=== PATIENT | male | born 1940 | race Caucasian/White ===

== ENCOUNTER 2016-06-30 08:06 | Day surgery (SDC) | payer OTHER ==
[2016-06-30] MEDS ORDERED: ASPIRIN EC 325 MG TAB PO ONE ×2 (08:11→08:40)
[2016-06-30] MEDS ORDERED: NS 1,000 ML IV ONE (08:11)
[2016-06-30] MEDS ORDERED: DIAZEPAM 5 MG TAB PO ONE (08:11)
[2016-06-30] MEDS ORDERED: diphenhydrAMINE 25 MG CAP PO ONE ×2 (08:11→08:40)
[2016-06-30] MEDS ORDERED: FAMOTIDINE 20 MG TAB PO ONE (08:11)
[2016-06-30] MEDS ORDERED: DIAZEPAM 5 MG TAB ONE (08:40)
[2016-06-30] MEDS ORDERED: FAMOTIDINE 20 MG TAB ONE (08:40)
[2016-06-30 08:41] LABS: % IMMATURE GRANULYOCYTES 0.2 % (0.0-1.1); ABSOLUTE IMMATURE GRANULOCYTES 0.02 10^3/uL (0.00-0.10); ADD DIFF? NO; ADD MORPH? NO; ADD SCAN? NO; ATYPICAL LYMPHOCYTE FLAG 10 (0-99); FRAGMENT RBC FLAG 30 (0-99); HEMATOCRIT 56.3 % (40.0-51.0); HEMOGLOBIN 19.6 g/dL (13.7-17.5); LEFT SHIFT FLG 0 (0-99); LIPEMIA HEMOLYSIS FLAG 90 (0-99); MEAN CELL HEMOGLOBIN 33.2 pg (27.9-34.1); MEAN CELL HEMOGLOBIN CONCENTR. 34.8 g/dL (32.4-36.7); MEAN CELL VOLUME 95.4 fL (81.5-99.8); MEAN PLATELET VOLUME 8.8 fL (8.7-11.7); PLATELET CLUMPS FLAG 0 (0-99); PLATELET COUNT 170 10^3/uL (150-400); RED CELL DISTRIBUTION WIDTH 13.3 % (11.5-15.2)
--- NOTE | 2016-06-30 08:42 | CPEKG ---
Heart Rate: 79 RR Interval: 759 P-R Interval: 196 QRSD Interval: 86 QT Interval: 408 QTC Interval: 468 P Cavalier: 46 QRS Cavalier: 28 T Wave Cavalier: -12 EKG Severity - ABNORMAL ECG - EKG Impression: SINUS RHYTHM EKG Impression: PROBABLE LEFT ATRIAL ABNORMALITY EKG Impression: PROBABLE LEFT VENTRICULAR HYPERTROPHY EKG Impression: PROBABLE INFERIOR INFARCT, AGE INDETERMINATE Electronically Signed By: Miguel Hogan 30-Jun-2016 17:24:32
[2016-06-30 09:02] LABS: ANION GAP 10 mEq/L (8-16); CALCIUM 8.9 mg/dL (8.5-10.4); CARBON DIOXIDE 27 mEq/l (22-31); CHLORIDE 106 mEq/L (97-110); CHOLESTEROL 142 mg/dL (140-220); CREATININE 0.8 mg/dL (0.7-1.3); GLOMERULAR FILTRATION RATE > 60; GLUCOSE 101 mg/dL (70-100); HIGH DENSITY LIPOPROTEIN 43 mg/dL (40-65); LDL/HDL RATIO 1.98 RATIO (1.00-3.64); LOW DENSITY LIPOPROTEIN 85 mg/dL (80-100); MAGNESIUM 1.9 mg/dL (1.6-2.3); NON-HIGH DENSITY LIPOPROTEIN 99 mg/dL (90-129); POTASSIUM 4.1 mEq/L (3.5-5.2); SODIUM 143 mEq/L (134-144); TRIGLYCERIDE 71 mg/dL (40-150); VERY LOW DENSITY LIPOPROTEINS 14 mg/dL (8-25)
[2016-06-30 09:40] LABS: INR 1.37 (0.83-1.16); PROTIME(PATIENT) 16.9 SEC (12.0-15.0)
[2016-06-30] MEDS ORDERED: fentaNYL 100 MCG/2 ML INJ ONE (10:25)
[2016-06-30] MEDS ORDERED: LIDOCAINE 1% 30 ML SDV ONE (10:25)
[2016-06-30] MEDS ORDERED: MIDAZOLAM 2 MG/2 ML VIAL ONE (10:25)
[2016-06-30] MEDS ORDERED: VERAPAMIL 5 MG/2 ML VIAL ONE (10:26)
[2016-06-30] MEDS ORDERED: HEPARIN 10,000 UNIT/10 ML MDV ONE (10:26)
[2016-06-30] MEDS ORDERED: IOPAMIDOL (ISOVUE-370) 150 ML BTL IV ONE ×2 (10:26→11:36)
--- NOTE | 2016-06-30 10:50 | PDDXCAT ---
Diagnostic Cath Note - . Date: 06/30/16 [employer] Supervisor: Tamela Indication: other (Shortness of breath, pulmonary hypertension, NYHA class III ) - Procedure Access: right wrist (A plethysmography trace assisted Nando's Test was used to document dual artery supply to the hand and index finger prior to access.) Procedure: left heart catheterization, coronary angiography, left ventriculogram - Materials Left Heart Cath size: 5F Left Heart Cath materials: JL3.5, JR4.0, pigtail Right Heart Cath size: 5F Right Heart Cath materials: PWP catheter - Findings-Left Heart Catheterization LM: 7 mm in size. Bifurcates into an LAD and circumflex system. 30% proximal stenosis of the left main with BERONICA III flow. LAD: ~4 mm in size. 30% proximal stenosis of the LAD with BERONICA III flow. There is a septal occlusion (95%) of a 1.5 mm diagonal branch off the proximal LAD with BERONICA II flow. LCX: The circumflex is 4.5 mm in size. There are diffuse luminal irregularities consistent with atherosclerosis. BERONICA III flow throughout. RCA: Dominant vessel (gives rise to PDA and PLV branches), ~6 mm in size. No evidence of flow-limiting disease with BERONICA III flow. EDP: 11 mmHg LVEF: 65% Wall motion: No wall motion abnormalities identified on LVG. There is no significant MR. The visualized protion of the thoracic aorta revealed three sinuses of Valsalva. There was no evidence of aneurysm or dissection. 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 There were luminal irregulrities throughout the coronary circulation consistent with atherosclerosis, including a 30% proximal LAD lesion and 30% proximal left main lesion that did not limit flow (BERONICA III flow). Intervention was not needed/ warranted at the present time. The patient's coronary disease should continue to be managed medically to reduce the progression of plaque formmation and inflammation (ideally by achieving a non-HDL cholesterol <100 mg/dL). The patient does have isolated pulmonary hypertension on right heart pressures. 500 mcg IV Nicardipine did not lower his pulmonary pressure. The patient also has poor movement of his left hemidiaphragm on fluroscopy. His shortness of breath is most likely pulmonary in origin and not related to obstructive coronary disease. I discussed these findings with his primary care physician, Dr. Bernabe Diana. He has had a recent workup for pulmonary embolus, which was negative. Dr. Diana plans to see the patient in follow up to discuss further treatment of his pulmonary hypertension.
[2016-06-30] MEDS ORDERED: niCARdipine 25 MG/10 ML VIAL IV ONE (11:24)
== END 2016-06-30 15:00 | disposition home or self-care (01) ==
LOC: FCATH 08:06
PROVIDERS: ATTEND Internal Medicine Cardiovascular Disease
PROC: 4A023N8 Measurement of Cardiac Sampling and Pressure, Bilateral, Percutaneous Approach (ICD-10-PCS; principal; 2016-06-30)
PROC: B2151ZZ Fluoroscopy of Left Heart using Low Osmolar Contrast (ICD-10-PCS; 2016-06-30)
PROC: B2111ZZ Fluoroscopy of Multiple Coronary Arteries using Low Osmolar Contrast (ICD-10-PCS; 2016-06-30)
DX: R06.02 Shortness of breath (principal); I27.2 Other secondary pulmonary hypertension; I25.10 Atherosclerotic heart disease of native coronary artery without angina pectoris; Z87.891 Personal history of nicotine dependence
CPT/HCPCS: J1644; J2250; J3010; Q9967

== ENCOUNTER → 2016-08-08 | Outpatient (CLI) | payer OTHER | LOC: FCPNEURO 20:00 | PROVIDERS: ATTEND Psychiatry & Neurology Sleep Medicine | DX: G47.33 Obstructive sleep apnea (adult) (pediatric) (principal); G47.36 Sleep related hypoventilation in conditions classified elsewhere ==

== ENCOUNTER → 2018-09-07 | Outpatient (CLI) | payer OTHER | LOC: BHFA 14:00 | PROVIDERS: ATTEND Internal Medicine Cardiovascular Disease | DX: I27.21 Secondary pulmonary arterial hypertension (principal) ==